=== PATIENT | female | born 1950 | race Caucasian/White ===

== ENCOUNTER 2024-02-23 06:52 | Day surgery (SDC) | payer OTHER ==
[2024-02-23] MEDS ORDERED: Midazolam 1 MG/ML 2 ML SDV ONE (07:24)
[2024-02-23] MEDS ORDERED: fentaNYL 50 MCG/ML SDV ONE (07:24)
[2024-02-23] MEDS ORDERED: Propofol 200 MG/20 ML SDV ONE (07:24)
[2024-02-23] MEDS: Lactated Ringers 1,000 ML IV SCH (07:27)
== END 2024-02-23 10:10 | disposition home or self-care (01) ==
LOC: JP.SDS 06:52
PROVIDERS: ATTEND Surgery
DX: K57.31 Diverticulosis of large intestine without perforation or abscess with bleeding (principal); E78.5 Hyperlipidemia, unspecified; F32.A Depression, unspecified
CPT/HCPCS: J2250; J2704; J3010; J7120